=== PATIENT | male | born 1940 | race Caucasian/White ===

== ENCOUNTER 2018-03-04 09:30 | Inpatient (IN) | payer MEDICARE, BC ==
--- NOTE | 2018-03-04 10:13 | EDM.PDOC ---
ED HPI GENERAL MEDICAL PROBLEM - General Chief Complaint: Cardiovascular Problem Stated Complaint: IRREGULAR HEARTBEAT Time Seen by Provider: 03/04/18 10:12 Source of Information: Reports: Patient History Limitations: Reports: No Limitations - History of Present Illness INITIAL COMMENTS - FREE TEXT/NARRATIVE: pt has had sob and he has had rapid heart rates. He had a pneumonia about 2 weeks ago and he is not sure that it cleared. He also went into a rapid rhythm 3 -4 days ago. He has not had chest pain . He had stent placed in his left arm last week., Onset: Other ( 3-4 days ago. ) Duration: Hour(s): Location: Reports: Chest Associated Symptoms: Reports: Malaise, Shortness of Breath, Weakness - Related Data Allergies Allergy/AdvReac Type Severity Reaction Status Date / Time erythromycin base Allergy Intermediate Rash Verified 10/03/17 09:32 [Erythromycin Base] oseltamivir phosphate Allergy Intermediate Wheezing Verified 10/03/17 09:32 [From Tamiflu] procaine HCl [From Novocain] Allergy Intermediate Swelling Verified 10/03/17 09: 32 rifabutin [Rifabutin] Allergy Unknown Rash Verified 10/03/17 09:32 Home Meds: Home Meds Albuterol Sulfate [Ventolin Hfa] 2 puff INH Q6HR PRN 01/27/14 [History] Aspirin [Lite Coat Aspirin] 81 mg PO BEDTIME 01/27/14 [History] Formoterol [Foradil] 1 puff INH BID 01/27/14 [History] Multivitamin [Multivitamins] 1 each PO DAILY 01/27/14 [History] Omeprazole 40 mg PO DAILY 01/27/14 [History] Tamsulosin [Flomax] 0.4 mg PO DAILY 01/27/14 [History] Tiotropium [Spiriva Handihaler] 1 puff INH DAILY 01/27/14 [History] atorvaSTATin [Lipitor] 40 mg PO BEDTIME 01/27/14 [History] guaiFENesin [Mucinex] 600 mg PO TID 01/27/14 [History] Nitroglycerin 0.4 mg SL Q5M PRN #50 tab.subl 01/28/14 [Rx] Gabapentin [Neurontin] 100 mg PO DAILY 09/07/14 [History] valACYclovir [Valtrex] 1,000 mg PO DAILY 09/07/14 [History] Diclofenac Sodium [Voltaren] 75 mg PO BIDMEALS 10/01/17 [History] Fluticasone Propionate [Flonase] 2 spray IH DAILY 10/01/17 [History] Metoprolol Tartrate 50 mg PO BID 10/01/17 [History] Mometasone Furoate [Asmanex 220 MCG] 2 puff IH DAILY 10/01/17 [History] Olodaterol HCl [Striverdi Respimat] 2 puff IH DAILY 10/01/17 [History] amLODIPine [Norvasc] 5 mg PO DAILY 10/01/17 [History] Acetaminophen [Tylenol] 1,000 mg PO Q4H PRN 03/04/18 [History] Clopidogrel [Plavix] 75 mg PO DAILY 03/04/18 [History] Past Medical History HEENT History: Reports: Impaired Vision Cardiovascular History: Reports: Afib, Hypertension Respiratory History: Reports: COPD Gastrointestinal History: Reports: Gastritis, Hiatal Hernia, Other (See Below) 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 Oncologic (Cancer) History: Reports: Prostate - Infectious Disease History Infectious Disease History: Reports: Chicken Pox, Measles, Mumps - Past Surgical History Cardiovascular Surgical History: Reports: Coronary Artery Stent Social & Family History - Tobacco Use Smoking Status *Q: Never Smoker - Caffeine Use Caffeine Use: Reports: Coffee - Recreational Drug Use Recreational Drug Use: No ED ROS GENERAL - Review of Systems Review Of Systems: See Below Constitutional: Reports: No Symptoms, Malaise, Weakness HEENT: Reports: No Symptoms Respiratory: Reports: Shortness of Breath Cardiovascular: Reports: Palpitations, Other (pt has had some episodes of heart rates in the 150 range. ) Endocrine: Reports: No Symptoms GI/Abdominal: Reports: No Symptoms : Reports: No Symptoms Musculoskeletal: Reports: No Symptoms Skin: Reports: No Symptoms ED EXAM, GENERAL - Physical Exam Exam: See Below Free Text/Narrative:: pt arrived with sob and a rapid irregular heart rhythm. He states he has had atrial fib in the past. Exam Limited By: No Limitations General Appearance: Alert, Mild Distress Ears: Normal TMs Nose: Normal Inspection Throat/Mouth: Normal Inspection Head: Atraumatic Neck: Normal Inspection Respiratory/Chest: No Respiratory Distress, Decreased Breath Sounds, Rales Cardiovascular: Irregularly Irregular, Other ( rate is 95) GI/Abdominal: Soft, Non-Tender (Male) Exam: Deferred Rectal (Males) Exam: Deferred Back Exam: Normal Inspection Extremities: Other ( trace perpheral edema) Neurological: Alert, Oriented, Normal Cognition Psychiatric: Normal Affect Course - Vital Signs Last Recorded V/S: Last Vital Signs Temp 34.6 C L 03/04/18 10:10 Pulse 107 H 03/04/18 10:10 Resp 18 03/04/18 10:10 BP 178/101 H 03/04/18 10:10 Pulse Ox 95 03/04/18 10:10 - Orders/Labs/Meds Orders: Active Orders 24 hr Category Date Time Status EKG Documentation Completion [RC] ASDIRECTED Care 03/04/18 10:05 Active UA W/MICROSCOPIC [URIN] Urgent Lab 03/04/18 11:06 Ordered Sodium Chloride 0.9% [Saline Flush] Med 03/04/18 10:12 Active 10 ml FLUSH ASDIRECTED PRN Saline Lock Insert [OM.PC] Routine Oth 03/04/18 10:12 Ordered EKG 12 Lead [EK] Routine Ther 03/04/18 10:04 Ordered Medication Orders Sodium Chloride (Saline Flush) 10 ml FLUSH ASDIRECTED PRN PRN Reason: Keep Vein Open Last Admin: 03/04/18 10:29 Dose: 10 ml Labs: Laboratory Tests 03/04/18 03/04/18 03/04/18 Range/Units 10:20 10:20 10:20 WBC 8.8 (4.5-11.0) K/uL RBC 4.57 (4.30-5.90) M/uL Hgb 14.1 D (12.0-15.0) g/dL Hct 42.7 (40.0-54.0) % MCV 93 (80-98) fL MCH 31 (27-31) pg MCHC 33 (32-36) % Plt Count 324 (150-400) K/uL Neut % (Auto) 69 H (36-66) % Lymph % (Auto) 12 L (24-44) % [place] % (Auto) 11 H (2-6) % Eos % (Auto) 8 H (2-4) % Baso % (Auto) 1 (0-1) % Sodium 140 (140-148) mmol/L Potassium 4.6 (3.6-5.2) mmol/L Chloride 106 (100-108) mmol/L Carbon Dioxide 26 (21-32) mmol/L Anion Gap 8.5 (5.0-14.0) mmol/L BUN 26 H D (7-18) mg/dL Creatinine 1.4 H D (0.8-1.3) mg/dL Est Cr Clr Drug Dosing 41.39 mL/min Estimated GFR (MDRD) 49 L (>60) Glucose 116 H (74-106) mg/dL Calcium 8.4 L (8.5-10.1) mg/dL Total Bilirubin 0.6 (0.2-1.0) mg/dL AST 25 (15-37) U/L ALT 36 (12-78) U/L Alkaline Phosphatase 51 (46-116) U/L Creatine Kinase 66 (39-308) U/L Troponin I < 0.017 (0.000-0.056) ng/mL NT-Pro-B Natriuret Pep (5-450) pg/mL Total Protein 6.7 (6.4-8.2) g/dL Albumin 2.5 L (3.4-5.0) g/dL Globulin 4.2 H (2.3-3.5) g/dL Albumin/Globulin Ratio 0.6 L (1.2-2.2) Urine Color Urine Appearance Urine pH (4.5-8.0) Ur Specific [place] (1.008-1.030) Urine Protein (NEGATIVE) mg/dL Urine Glucose (UA) (NEGATIVE) mg/dL Urine Ketones (NEGATIVE) mg/dL Urine Occult Blood (NEGATIVE) Urine Nitrite (NEGAITVE) Urine Bilirubin (NEGATIVE) Urine Urobilinogen (NORMAL) mg/dL Ur Leukocyte Esterase (NEGATIVE) Urine RBC (0-5) Urine WBC (0-5) Ur Epithelial Cells Amorphous Sediment Urine Bacteria Urine Mucus 03/04/18 03/04/18 Range/Units 10:20 11:06 WBC (4.5-11.0) K/uL RBC (4.30-5.90) M/uL Hgb (12.0-15.0) g/dL Hct (40.0-54.0) % MCV (80-98) fL MCH (27-31) pg MCHC (32-36) % Plt Count (150-400) K/uL Neut % (Auto) (36-66) % Lymph % (Auto) (24-44) % [place] % (Auto) (2-6) % Eos % (Auto) (2-4) % Baso % (Auto) (0-1) % Sodium (140-148) mmol/L Potassium (3.6-5.2) mmol/L Chloride (100-108) mmol/L Carbon Dioxide (21-32) mmol/L Anion Gap (5.0-14.0) mmol/L BUN (7-18) mg/dL Creatinine (0.8-1.3) mg/dL Est Cr Clr Drug Dosing mL/min Estimated GFR (MDRD) (>60) Glucose (74-106) mg/dL Calcium (8.5-10.1) mg/dL Total Bilirubin (0.2-1.0) mg/dL AST (15-37) U/L ALT (12-78) U/L Alkaline Phosphatase (46-116) U/L Creatine Kinase (39-308) U/L Troponin I (0.000-0.056) ng/mL NT-Pro-B Natriuret Pep 1001 H (5-450) pg/mL Total Protein (6.4-8.2) g/dL Albumin (3.4-5.0) g/dL Globulin (2.3-3.5) g/dL Albumin/Globulin Ratio (1.2-2.2) Urine Color Yellow Urine Appearance Slightly cloudy Urine pH 7.0 (4.5-8.0) Ur Specific [place] 1.010 (1.008-1.030) Urine Protein Negative (NEGATIVE) mg/dL Urine Glucose (UA) Normal (NEGATIVE) mg/dL Urine Ketones Negative (NEGATIVE) mg/dL Urine Occult Blood Negative (NEGATIVE) Urine Nitrite Negative (NEGAITVE) Urine Bilirubin Negative (NEGATIVE) Urine Urobilinogen Normal (NORMAL) mg/dL Ur Leukocyte Esterase Negative (NEGATIVE) Urine RBC 0-5 (0-5) Urine WBC Not seen (0-5) Ur Epithelial Cells Not seen Amorphous Sediment Not seen Urine Bacteria Not seen Urine Mucus Few Meds: Medications Generic Name Dose Route Start Last Admin Trade Name Freq PRN Reason Stop Dose Admin Sodium Chloride 10 ml 03/04/18 10:12 03/04/18 10:29 Saline Flush FLUSH 10 ml ASDIRECTED PRN Administration Keep Vein Open Discontinued Medications Generic Name Dose Route Start Last Admin Trade Name Joy PRN Reason Stop Dose Admin Furosemide 60 mg 03/04/18 11:55 Lasix IVPUSH 03/04/18 11:56 ONETIME ONE - Re-Assessments/Exams Free Text/Narrative Re-Assessment/Exam: 03/04/18 12:02 chest xray shows a infiltrate verus chf, pt is in atrial fib-flutter, his trop is normal. His bnp is 1000. Departure - Departure Time of Disposition: 11:54 Disposition: Admitted As Inpatient 64 Condition: Fair Clinical Impression: Atrial fibrillation/flutter, CHF (congestive heart failure) Referrals: Kra Burkett MD [Primary Care Provider] - Forms: ED Department Discharge Care Plan Goals: admit to Dr Marie - My Orders Last 24 Hours: My Active Orders 03/04/18 10:04 EKG 12 Lead [EK] Routine 03/04/18 10:05 EKG Documentation Completion [RC] ASDIRECTED 03/04/18 10:12 Sodium Chloride 0.9% [Saline Flush] 10 ml FLUSH ASDIRECTED PRN Saline Lock Insert [OM.PC] Routine 03/04/18 11:06 UA W/MICROSCOPIC [URIN] Urgent - Assessment/Plan Last 24 Hours: My Active Orders 03/04/18 10:04 EKG 12 Lead [EK] Routine 03/04/18 10:05 EKG Documentation Completion [RC] ASDIRECTED 03/04/18 10:12 Sodium Chloride 0.9% [Saline Flush] 10 ml FLUSH ASDIRECTED PRN Saline Lock Insert [OM.PC] Routine 03/04/18 11:06 UA W/MICROSCOPIC [URIN] Urgent
[2018-03-04] MEDS: Sodium Chloride 0.9% 10 ML Syringe FLUSH PRN ×2 (10:29→12:55)
--- NOTE | 2018-03-04 11:52 | CR ---
CHEST: 2 view CLINICAL HISTORY:Shortness of breath COMPARISON:Portable chest the 2014 FINDINGS: There is moderate to the pleural parenchymal scarring in the left hemithorax with apical t hickening. There are scattered areas of scarring in the right the upper lobe. The lung markings of in creased since 2014. This may represent progressive disease or possibly superimposed the interstitial edema or infiltrate. On the lateral image there is some pleural-based density posteriorly which may b e chronic. Patient has had previous sternotomy. IMPRESSION: Severe changes of COPD with the moderate the superimposed pleural parenchymal scarring l eft greater than right. This has progressed since the 2014. There has been left apical surgery. Superimposed acute process such is some CHF or pneumonitis cannot be excluded Irregular pleural-based density seen on the lateral film posteriorly may be a part of this pleural pa renchymal scarring. If clinically relevant the noncontrast CT chest should be considered
[2018-03-04] MEDS ORDERED: Furosemide 40 MG/4 ML VIAL IVPUSH ONE (11:55)
--- NOTE | 2018-03-04 14:04 | PCM.HP ---
H&P History of Present Illness - General Date of Service: 03/04/18 Admit Problem/Dx: Admission Diagnosis/Problem Admission Diagnosis/Problem Atrial fibrillation Source of Information: Patient, Family, Old Records, Provider, RN Notes Reviewed History Limitations: Reports: No Limitations - History of Present Illness Initial Comments - Free Text/Narative: Mr. Garces is a 77-year-old gentleman who is admitted through the emergency department with weakness and dyspnea secondary to atrial fibrillation with rapid ventricular response. He has a known previous history of atrial fibrillation, having occurred on 2 previous occasions. He also has known underlying chronic lung disease as well as coronary artery disease. In the recent past he has been hospitalized for pneumonia and one week ago underwent coronary angioplasty with stent placement. He felt well until approximately 3 days ago when he began to note weakness with exertion associated with dyspnea. He presented to the emergency department today for further evaluation. Cardiac monitoring shows evidence of atrial fibrillation with rapid ventricular response. There was some question of possible congestive failure, lungs are clear on examination and chest x-ray is equivocal concerning the issue of pulmonary edema. - Related Data Allergies/Adverse Reactions: Allergies Allergy/AdvReac Type Severity Reaction Status Date / Time erythromycin base Allergy Intermediate Rash Verified 10/03/17 09:32 [Erythromycin Base] oseltamivir phosphate Allergy Intermediate Wheezing Verified 10/03/17 09:32 [From Tamiflu] procaine HCl [From Novocain] Allergy Intermediate Swelling Verified 10/03/17 09: 32 rifabutin [Rifabutin] Allergy Unknown Rash Verified 10/03/17 09:32 Home Medications: Home Meds Albuterol Sulfate [Ventolin Hfa] 2 puff INH Q6HR PRN 01/27/14 [History] Aspirin [Lite Coat Aspirin] 81 mg PO BEDTIME 01/27/14 [History] Formoterol [Foradil] 1 puff INH BID 01/27/14 [History] Multivitamin [Multivitamins] 1 each PO DAILY 01/27/14 [History] Omeprazole 40 mg PO DAILY 01/27/14 [History] Tamsulosin [Flomax] 0.4 mg PO DAILY 01/27/14 [History] Tiotropium [Spiriva Handihaler] 1 puff INH DAILY 01/27/14 [History] atorvaSTATin [Lipitor] 40 mg PO BEDTIME 01/27/14 [History] guaiFENesin [Mucinex] 600 mg PO TID 01/27/14 [History] Nitroglycerin 0.4 mg SL Q5M PRN #50 tab.subl 01/28/14 [Rx] Gabapentin [Neurontin] 100 mg PO DAILY 09/07/14 [History] valACYclovir [Valtrex] 1,000 mg PO DAILY 09/07/14 [History] Diclofenac Sodium [Voltaren] 75 mg PO BIDMEALS 10/01/17 [History] Fluticasone Propionate [Flonase] 2 spray IH DAILY 10/01/17 [History] Metoprolol Tartrate 50 mg PO BID 10/01/17 [History] Mometasone Furoate [Asmanex 220 MCG] 2 puff IH DAILY 10/01/17 [History] Olodaterol HCl [Striverdi Respimat] 2 puff IH DAILY 10/01/17 [History] amLODIPine [Norvasc] 5 mg PO DAILY 10/01/17 [History] Acetaminophen [Tylenol] 1,000 mg PO Q4H PRN 03/04/18 [History] Clopidogrel [Plavix] 75 mg PO DAILY 03/04/18 [History] Past Medical History HEENT History: Reports: Impaired Vision Cardiovascular History: Reports: Afib, Hypertension Respiratory History: Reports: COPD Gastrointestinal History: Reports: Gastritis, Hiatal Hernia, Other (See Below) 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 Denies: Fever, Chills HEENT: Reports: No Symptoms Pulmonary: Reports: Shortness of Breath, Cough. Denies: Wheezing, Pleuritic Chest Pain, Sputum, Hemoptysis Cardiovascular: Reports: Palpitations, Dyspnea on Exertion. Denies: Chest Pain , Orthopnea, PND, Edema, Lightheadedness Gastrointestinal: Reports: No Symptoms Genitourinary: Reports: No Symptoms Musculoskeletal: Reports: No Symptoms Skin: Reports: No Symptoms Psychiatric: Reports: No Symptoms Neurological: Reports: No Symptoms Hematologic/Lymphatic: Reports: No Symptoms Immunologic: Reports: No Symptoms Exam - Exam Exam: See Below - Vital Signs Vital Signs: Last Vital Signs Temp 94.3 F L 03/04/18 10:10 Pulse 88 03/04/18 13:48 Resp 16 03/04/18 13:48 BP 138/97 H 03/04/18 13:48 Pulse Ox 91 L 03/04/18 13:48 Weight: 160 lb 14.999 oz - Exam Quality Assessment: DVT Prophylaxis General: Alert, Oriented, Cooperative HEENT: Conjunctiva Clear, Hearing Intact, Mucosa Moist & [place], Normal Nasal Septum, Posterior Pharynx Clear, Pupils Equal Neck: Supple, Trachea Midline, +2 Carotid Pulse wo Bruit Lungs: Clear to Auscultation, Normal Respiratory Effort Cardiovascular: Normal S1, Normal S2, Irregular Rhythm, Tachycardia. No: Systolic Murmur, Diastolic Murmur GI/Abdominal Exam: Soft, Non-Tender, No Organomegaly, No Distention Back Exam: Normal Inspection, Full Range of Motion Extremities: Non-Tender, No Pedal Edema Skin: Warm, Dry Neurological: Cranial Nerves Intact, Strength Equal Bilateral, Normal Speech, Normal Tone. No: Focal Deficit Neuro Extensive - Mental Status: Alert, Oriented x3, Normal Mood/Affect, Normal Cognition, Memory Intact - Patient Data Lab Results Last 24 hrs: Laboratory Results - last 24 hr 03/04/18 03/04/18 03/04/18 Range/Units 10:20 10:20 10:20 WBC 8.8 (4.5-11.0) K/uL RBC 4.57 (4.30-5.90) M/uL Hgb 14.1 D (12.0-15.0) g/dL Hct 42.7 (40.0-54.0) % MCV 93 (80-98) fL MCH 31 (27-31) pg MCHC 33 (32-36) % Plt Count 324 (150-400) K/uL Neut % (Auto) 69 H (36-66) % Lymph % (Auto) 12 L (24-44) % [place] % (Auto) 11 H (2-6) % Eos % (Auto) 8 H (2-4) % Baso % (Auto) 1 (0-1) % Sodium 140 (140-148) mmol/L Potassium 4.6 (3.6-5.2) mmol/L Chloride 106 (100-108) mmol/L Carbon Dioxide 26 (21-32) mmol/L Anion Gap 8.5 (5.0-14.0) mmol/L BUN 26 H D (7-18) mg/dL Creatinine 1.4 H D (0.8-1.3) mg/dL Est Cr Clr Drug Dosing 41.39 mL/min Estimated GFR (MDRD) 49 L (>60) Glucose 116 H (74-106) mg/dL Calcium 8.4 L (8.5-10.1) mg/dL Total Bilirubin 0.6 (0.2-1.0) mg/dL AST 25 (15-37) U/L ALT 36 (12-78) U/L Alkaline Phosphatase 51 (46-116) U/L Creatine Kinase 66 (39-308) U/L Troponin I < 0.017 (0.000-0.056) ng/mL NT-Pro-B Natriuret Pep (5-450) pg/mL Total Protein 6.7 (6.4-8.2) g/dL Albumin 2.5 L (3.4-5.0) g/dL Globulin 4.2 H (2.3-3.5) g/dL Albumin/Globulin Ratio 0.6 L (1.2-2.2) Urine Color Urine Appearance Urine pH (4.5-8.0) Ur Specific [place] (1.008-1.030) Urine Protein (NEGATIVE) mg/dL Urine Glucose (UA) (NEGATIVE) mg/dL Urine Ketones (NEGATIVE) mg/dL Urine Occult Blood (NEGATIVE) Urine Nitrite (NEGAITVE) Urine Bilirubin (NEGATIVE) Urine Urobilinogen (NORMAL) mg/dL Ur Leukocyte Esterase (NEGATIVE) Urine RBC (0-5) Urine WBC (0-5) Ur Epithelial Cells Amorphous Sediment Urine Bacteria Urine Mucus 03/04/18 03/04/18 Range/Units 10:20 11:06 WBC (4.5-11.0) K/uL RBC (4.30-5.90) M/uL Hgb (12.0-15.0) g/dL Hct (40.0-54.0) % MCV (80-98) fL MCH (27-31) pg MCHC (32-36) % Plt Count (150-400) K/uL Neut % (Auto) (36-66) % Lymph % (Auto) (24-44) % [place] % (Auto) (2-6) % Eos % (Auto) (2-4) % Baso % (Auto) (0-1) % Sodium (140-148) mmol/L Potassium (3.6-5.2) mmol/L Chloride (100-108) mmol/L Carbon Dioxide (21-32) mmol/L Anion Gap (5.0-14.0) mmol/L BUN (7-18) mg/dL Creatinine (0.8-1.3) mg/dL Est Cr Clr Drug Dosing mL/min Estimated GFR (MDRD) (>60) Glucose (74-106) mg/dL Calcium (8.5-10.1) mg/dL Total Bilirubin (0.2-1.0) mg/dL AST (15-37) U/L ALT (12-78) U/L Alkaline Phosphatase (46-116) U/L Creatine Kinase (39-308) U/L Troponin I (0.000-0.056) ng/mL NT-Pro-B Natriuret Pep 1001 H (5-450) pg/mL Total Protein (6.4-8.2) g/dL Albumin (3.4-5.0) g/dL Globulin (2.3-3.5) g/dL Albumin/Globulin Ratio (1.2-2.2) Urine Color Yellow Urine Appearance Slightly cloudy Urine pH 7.0 (4.5-8.0) Ur Specific [place] 1.010 (1.008-1.030) Urine Protein Negative (NEGATIVE) mg/dL Urine Glucose (UA) Normal (NEGATIVE) mg/dL Urine Ketones Negative (NEGATIVE) mg/dL Urine Occult Blood Negative (NEGATIVE) Urine Nitrite Negative (NEGAITVE) Urine Bilirubin Negative (NEGATIVE) Urine Urobilinogen Normal (NORMAL) mg/dL Ur Leukocyte Esterase Negative (NEGATIVE) Urine RBC 0-5 (0-5) Urine WBC Not seen (0-5) Ur Epithelial Cells Not seen Amorphous Sediment Not seen Urine Bacteria Not seen Urine Mucus Few Result Diagrams: 03/04/18 10:20 03/04/18 10:20 *Q Meaningful Use (ADM) - VTE Risk Assess *Q Each Risk Factor Represents 1 Point: Abnormal Pulmonary Function (COPD) Total Score 1 Point Risk Factors: 1 Each Risk Factor Represents 2 Points: None Total Score 2 Point Risk Factors: 0 Each Risk Factor Represents 3 Points: Age 75 Years or Greater Total Score 3 Point Risk Factors: 3 Each Risk Factor Represents 5 Points: None Total Score 5 Point Risk Factors: 0 Venous Thromboembolism Risk Factor Score *Q: 4 Problem List Initiated/Reviewed/Updated: Yes Orders Last 24hrs: Active Orders 24 hr Category Date Time Status Patient Status Manage Transfer [TRANSFER] Routine ADT 03/04/18 13:48 Active EKG Documentation Completion [RC] ASDIRECTED Care 03/04/18 10:05 Active UA W/MICROSCOPIC [URIN] Urgent Lab 03/04/18 11:06 Ordered Sodium Chloride 0.9% [Saline Flush] Med 03/04/18 10:12 Active 10 ml FLUSH ASDIRECTED PRN Saline Lock Insert [OM.PC] Routine Oth 03/04/18 10:12 Ordered Resuscitation Status Routine Resus Stat 03/04/18 13:53 Ordered EKG 12 Lead [EK] Routine Ther 03/04/18 10:04 Ordered Medication Orders Sodium Chloride (Saline Flush) 10 ml FLUSH ASDIRECTED PRN PRN Reason: Keep Vein Open Last Admin: 03/04/18 12:55 Dose: 10 ml Admin: 03/04/18 10:29 Dose: 10 ml Assessment/Plan Comment:: ASSESSMENT AND PLAN ATRIAL FIBRILLATION WITH RAPID VENTRICULAR RESPONSE-onset likely in the last 3 days, with associated symptoms of weakness and shortness of breath. Previous episodes of atrial fibrillation on at least 2 previous occurrences. Not a candidate for electrical cardioversion because of unknown duration of time. -Cardiac monitoring -Continue current dose of metoprolol -Diltiazem 30 mg by mouth every 6 hours -Consider initiation of oral anticoagulation CORONARY ARTERY DISEASE-status post angioplasty with stent placement one week ago -Continue current medical therapy CONGESTIVE HEART FAILURE-seems to be relatively stable, more likely current symptoms are related to the atrial fibrillation -Continue outpatient medical regimen COPD-no evidence of acute exacerbation CHRONIC KIDNEY DISEASE STAGE III -Closely monitor urine output and renal function MAINTENANCE ISSUES -DVT prophylaxis; Lovenox 40 mg subcutaneous daily -GI prophylaxis; continue outpatient PPI therapy -[place] catheter; not indicated -Nutrition; 2 g sodium diet -Nicotine dependence; not required CODE STATUS-FULL CODE ADMISSION STATUS-patient will be admitted to inpatient status, expect at least a 2 night hospital stay for evaluation and management of problems as outlined above. At the time of this admission I do not reasonably expected evaluation and management of this problem will require more than a 96 hour hospital stay. DISPOSITION-anticipate discharge to home after the hospital stay. PRIMARY CARE PROVIDER-Dr. Burkett
[2018-03-04] MEDS ORDERED: Polyethylene Glycol 3350 Powder 17 GM Packet PO PRN (14:30)
[2018-03-04] MEDS ORDERED: Albuterol 0.083% 2.5 MG/3 ML Neb Soln NEB PRN (14:30)
[2018-03-04] MEDS ORDERED: Albuterol 8 GM Inhaler INH PRN (14:30)
[2018-03-04] MEDS ORDERED: Ondansetron 4 MG/2 ML SDV IV PRN (14:30)
[2018-03-04] MEDS ORDERED: Acetaminophen 325 MG Tab PO PRN (14:30)
[2018-03-04] MEDS ORDERED: Magnesium Hydroxide 400 MG/5 ML Susp 30 ML Cup PO PRN (14:30)
[2018-03-04] MEDS ORDERED: oxyCODONE 5 MG Tab PO PRN (14:30)
[2018-03-04] MEDS ORDERED: Sodium Chloride 0.9% 10 ML Syringe FLUSH PRN (14:30)
[2018-03-04] MEDS ORDERED: Enoxaparin 40 MG/0.4 ML Syringe SUBCUT SCH (15:00)
[2018-03-04] MEDS: Diltiazem IR 30 MG Tab PO SCH ×2 (15:58→21:16)
[2018-03-04] MEDS: Diclofenac Sodium 75 MG Tab.EC PO SCH (17:05)
[2018-03-04] MEDS ORDERED: Formoterol 12 MCG Inhalant Cap Kit of 12 INH SCH (21:00)
[2018-03-04] MEDS ORDERED: atorvaSTATin 20 MG Tab PO SCH (21:00)
[2018-03-04] MEDS ORDERED: Aspirin 81 MG Tab.EC PO SCH (21:00)
[2018-03-04] MEDS: Metoprolol Tartrate 50 MG Tab PO SCH (21:15)
[2018-03-05] MEDS: Diltiazem IR 30 MG Tab PO SCH ×2 (02:57→08:53)
[2018-03-05] MEDS ORDERED: STIOLTO RESPIMAT INH SCH (07:00)
[2018-03-05] MEDS ORDERED: Tiotropium Inhaler 18 MCG Inhalation Powder Cap Kit of 5 INH SCH (07:00)
[2018-03-05] MEDS: Diclofenac Sodium 75 MG Tab.EC PO SCH (07:19)
[2018-03-05] MEDS: Metoprolol Tartrate 50 MG Tab PO SCH ×2 (07:25→08:56)
[2018-03-05] MEDS ORDERED: Pantoprazole 40 MG Tab.CR PO SCH (07:30)
[2018-03-05] MEDS: valACYclovir 1,000 MG Tab PO SCH ×2 (08:56→09:04)
[2018-03-05] MEDS ORDERED: Clopidogrel 75 MG Tab PO SCH (09:00)
[2018-03-05] MEDS ORDERED: OLODATEROL HCL IH SCH (09:00)
[2018-03-05] MEDS ORDERED: Mometasone Furoate Powder 220 MCG/Puff 14 Dose Inhaler INH SCH ×2 (09:00→21:00)
[2018-03-05] MEDS ORDERED: Tamsulosin 0.4 MG Cap.ER PO SCH (09:00)
[2018-03-05] MEDS ORDERED: Fluticasone Propionate Nasal Spray 16 GM Bottle NASBOTH SCH ×2 (09:00→21:00)
[2018-03-05] MEDS ORDERED: Gabapentin 100 MG Cap PO SCH (09:00)
--- NOTE | 2018-03-05 13:18 | PCM.DCSUM1 ---
Discharge Summary - Hospital Course Brief History: Mr. Garces is a 77-year-old gentleman who was admitted through the emergency department for further evaluation and management of atrial fibrillation with rapid ventricular response. - Discharge Data Discharge Date: 03/05/18 Discharge Disposition: Home, Self-Care 01 Condition: Fair - Discharge Diagnosis/Problem(s) (1) CHF (congestive heart failure) SNOMED Code(s): 98086547 ICD Code: I50.9 - HEART FAILURE, UNSPECIFIED Status: Acute Current Visit : Yes (2) Paroxysmal atrial fibrillation with rapid ventricular response SNOMED Code(s): 352936620, 252710591892017 ICD Code: I48.0 - PAROXYSMAL ATRIAL FIBRILLATION Status: Acute Current Visit: Yes (3) Coronary arteriosclerosis, CAD SNOMED Code(s): 23353903 ICD Code: I25.10 - ATHSCL HEART DISEASE OF [place] CORONARY ARTERY W/O ANG PCTRS Status: Chronic Current Visit: No (4) COPD (chronic obstructive pulmonary disease) SNOMED Code(s): 02608118 ICD Code: J44.9 - CHRONIC OBSTRUCTIVE PULMONARY DISEASE, UNSPECIFIED Status : Chronic Current Visit: No - Patient Summary/Data Consults: Consultations 03/04/18 14:30 PT Evaluation and Treatment [CONS] Routine Please Evaluate and Treat. PT Reason for Consult: Weakness This query below is only for informational purposes and is not editable. Hospital Course: Mr. Garces is a 77-year-old gentleman who was admitted through the emergency department with weakness and dyspnea secondary to atrial fibrillation with rapid ventricular response. He has a known previous history of atrial fibrillation, having occurred on 2 previous occasions. He also has known underlying chronic lung disease as well as coronary artery disease. In the recent past he has been hospitalized for pneumonia and one week ago underwent coronary angioplasty with stent placement. He felt well until approximately 3 days ago when he began to note weakness with exertion associated with dyspnea. He presented to the emergency department today for further evaluation. Cardiac monitoring shows evidence of atrial fibrillation with rapid ventricular response. There was some question of possible congestive failure, lungs are clear on examination and chest x-ray is equivocal concerning the issue of pulmonary edema. On admission he was started on short acting diltiazem 30 mg every 6 hours for rate control. He was placed on county auditor, initially heart rate was elevated but then did decrease with use of the diltiazem. He spontaneously converted later in the evening to sinus rhythm and remained in sinus rhythm throughout the duration of his hospital stay. Amlodipine was discontinued because of initiation of therapy with diltiazem and will be discontinue at the time of discharge. Given very limited episodes up to this point of atrial fibrillation he was not started on oral anticoagulation. He will be discharged home on long acting diltiazem 120 mg daily in addition to his other medications. Activity will be as tolerated and he will resume his usual diet. Follow-up appointment will be scheduled with Dr. Burkett within one week. - Patient Instructions Diet: Heart Healthy Diet Activity: As Tolerated Other/Special Instructions: Please schedule follow-up appointment with Dr. Burkett within one week. - Discharge Plan Prescriptions/Med Rec: Diltiazem HCl [Diltiazem 24Hr Cd] 120 mg PO DAILY #30 cap.er.24h Home Medications: Home Meds Albuterol Sulfate [Ventolin Hfa] 2 puff INH Q6HR PRN 01/27/14 [History] Aspirin [Lite Coat Aspirin] 81 mg PO BEDTIME 01/27/14 [History] Multivitamin [Multivitamins] 1 each PO DAILY 01/27/14 [History] Omeprazole 40 mg PO DAILY 01/27/14 [History] Tamsulosin [Flomax] 0.4 mg PO BEDTIME 01/27/14 [History] atorvaSTATin [Lipitor] 40 mg PO BEDTIME 01/27/14 [History] Nitroglycerin 0.4 mg SL Q5M PRN #50 tab.subl 01/28/14 [Rx] Gabapentin [Neurontin] 100 mg PO DAILY 09/07/14 [History] Diclofenac Sodium [Voltaren] 75 mg PO ACDINNER 10/01/17 [History] Fluticasone Propionate [Flonase] 2 spray IH QPM 10/01/17 [History] Metoprolol Tartrate 50 mg PO BID 10/01/17 [History] Mometasone Furoate [Asmanex 220 MCG] 1 puff IH QAM 10/01/17 [History] Acetaminophen [Tylenol] 1,000 mg PO Q4H PRN 03/04/18 [History] Clopidogrel [Plavix] 75 mg PO DAILY 03/04/18 [History] Diltiazem HCl [Diltiazem 24Hr Cd] 120 mg PO DAILY #30 cap.er.24h 03/05/18 [Rx] Referrals: Kar Burkett MD [Primary Care Provider] - - Discharge Summary/Plan Comment DC Time >30 min.: No - Patient Data Vitals - Most Recent: Last Vital Signs Temp 95.5 F 03/05/18 11:08 Pulse 73 03/05/18 11:08 Resp 16 03/05/18 11:08 BP 147/81 H 03/05/18 11:08 Pulse Ox 90 L 03/05/18 11:08 Weight - Most Recent: 152 lb 12.803 oz I&O - Last 24 hours: Intake & Output 03/04/18 03/05/18 03/05/18 22:59 06:59 14:59 Intake Total 577 860 Output Total 1200 350 Balance -623 510 Lab Results - Last 24 hrs: Laboratory Results - last 24 hr 03/05/18 03/05/18 03/05/18 Range/Units 04:33 04:33 04:33 WBC 7.9 (4.5-11.0) K/uL RBC 4.63 (4.30-5.90) M/uL Hgb 14.4 (12.0-15.0) g/dL Hct 24.7 L (40.0-54.0) % MCV 92 (80-98) fL MCH 31 (27-31) pg MCHC 34 (32-36) % Plt Count 270 (150-400) K/uL Neut % (Auto) 67 H (36-66) % Lymph % (Auto) 16 L (24-44) % [place] % (Auto) 9 H (2-6) % Eos % (Auto) 7 H (2-4) % Baso % (Auto) 1 (0-1) % Sodium 137 L (140-148) mmol/L Potassium 4.3 (3.6-5.2) mmol/L Chloride 102 (100-108) mmol/L Carbon Dioxide 23 (21-32) mmol/L Anion Gap 16.3 H (5.0-14.0) mmol/L BUN 28 H (7-18) mg/dL Creatinine 1.3 (0.8-1.3) mg/dL Est Cr Clr Drug Dosing 44.58 mL/min Estimated GFR (MDRD) 53 L (>60) Glucose 108 H (74-106) mg/dL Calcium 8.6 (8.5-10.1) mg/dL TSH, Ultra Sensitive 2.604 (0.358-3.740) uIU/mL Med Orders - Current: Current Medications Acetaminophen (Tylenol) 650 mg PO Q4H PRN PRN Reason: Pain (Mild 1-3)/fever Albuterol (Ventolin Hfa) 0 gm INH Q6H PRN PRN Reason: Shortness of Breath Albuterol (Proventil Neb Soln) 2.5 mg NEB Q4H PRN PRN Reason: Shortness Of Breath/wheezing Aspirin (Halfprin) 81 mg PO BEDTIME [facility] Last Admin: 03/04/18 21:16 Dose: 81 mg Atorvastatin Calcium (Lipitor) 40 mg PO BEDTIME [facility] Last Admin: 03/04/18 21:17 Dose: 40 mg Clopidogrel Bisulfate (Plavix) 75 mg PO DAILY [facility] Last Admin: 03/05/18 08:53 Dose: 75 mg Diclofenac Sodium (Voltaren) 75 mg PO BIDMEALS [facility] Last Admin: 03/05/18 07:19 Dose: 75 mg Diltiazem HCl (Cardizem) 30 mg PO Q6H [facility] Last Admin: 03/05/18 08:53 Dose: 30 mg Enoxaparin Sodium (Lovenox) 40 mg SUBCUT Q24H [facility] Last Admin: 03/04/18 15:58 Dose: 40 mg Fluticasone Propionate (Flonase) 0 gm NASBOTH BEDTIME [facility] Gabapentin (Neurontin) 100 mg PO DAILY [facility] Last Admin: 03/05/18 08:53 Dose: 100 mg Magnesium Hydroxide (Milk Of Magnesia) 30 ml PO Q12H PRN PRN Reason: Constipation Metoprolol Tartrate (Lopressor) 50 mg PO BID [facility] Last Admin: 03/05/18 08:56 Dose: Not Given Mometasone Furoate (Asmanex 220 Mcg) 1 puff INH DAILY@0700 [facility] Last Admin: 03/05/18 09:05 Dose: 1 puff Ondansetron HCl (Zofran) 4 mg IV Q4H PRN PRN Reason: Nausea/Vomiting Oxycodone HCl (Oxycodone) 5 mg PO Q4H PRN PRN Reason: Pain (moderate 4-6) Pantoprazole Sodium (Protonix) 40 mg PO ACBREAKFAST [facility] Last Admin: 03/05/18 07:19 Dose: 40 mg Stiolto Respimat ( (Ptom)) 0 each INH DAILY@0700 [facility] Last Admin: 03/05/18 08:51 Dose: 2 each Polyethylene Glycol (Miralax) 17 gm PO DAILY PRN PRN Reason: Constipation Senna/Docusate Sodium (Senna Plus) 1 tab PO BID PRN PRN Reason: Constipation Sodium Chloride (Saline Flush) 10 ml FLUSH ASDIRECTED PRN PRN Reason: Keep Vein Open Tamsulosin HCl (Flomax) 0.4 mg PO DAILY [facility] Last Admin: 03/05/18 08:53 Dose: 0.4 mg Valacyclovir HCl (Valtrex) 1,000 mg PO DAILY [facility] Last Admin: 03/05/18 09:04 Dose: Not Given Discontinued Medications Fluticasone Propionate (Flonase) 0 gm NASBOTH DAILY [facility] Furosemide (Lasix) 60 mg IVPUSH ONETIME ONE Stop: 03/04/18 11:56 Last Admin: 03/04/18 12:54 Dose: 60 mg Mometasone Furoate (Asmanex 220 Mcg) 1 puff INH BEDTIME [facility] Sodium Chloride (Saline Flush) 10 ml FLUSH ASDIRECTED PRN PRN Reason: Keep Vein Open Last Admin: 03/04/18 12:55 Dose: 10 ml - Exam General: Reports: Alert, Oriented, Cooperative, No Acute Distress Cardiovascular: Reports: Regular Rate, Regular Rhythm, No Murmurs GI/Abdominal Exam: Soft, Non-Tender, No Organomegaly, No Distention Extremities: Non-Tender, No Pedal Edema Skin: Reports: Warm, Dry
== END 2018-03-05 14:55 | disposition home or self-care (01) | DRG 309 ==
LOC: JP.ED 09:30 → JP.MS 13:48
PROVIDERS: ADMIT Hospitalist; ATTEND Hospitalist
DX: I48.0 Paroxysmal atrial fibrillation (principal); I13.0 Hypertensive heart and chronic kidney disease with heart failure and stage 1 through stage 4 chronic kidney disease, or unspecified chronic kidney disease; I50.9 Heart failure, unspecified; N18.3 Chronic kidney disease, stage 3 (moderate); J44.9 Chronic obstructive pulmonary disease, unspecified; I25.10 Atherosclerotic heart disease of native coronary artery without angina pectoris; I49.9 Cardiac arrhythmia, unspecified; R06.02 Shortness of breath; Z85.46 Personal history of malignant neoplasm of prostate; Z95.5 Presence of coronary angioplasty implant and graft; H54.7 Unspecified visual loss; Z79.82 Long term (current) use of aspirin; Z88.1 Allergy status to other antibiotic agents; Z88.8 Allergy status to other drugs, medicaments and biological substances
CPT/HCPCS: 36415; 71046 ×2; 80053; 81001; 82550; 83880; 84484; 85025; 93005; J1940; J7050 ×2; 80048; 84443; 96374; 99285-25; A9270-GY; J1650

== ENCOUNTER 2018-03-23 18:27 | Emergency (ER) | payer MEDICARE, BC ==
--- NOTE | 2018-03-23 19:23 | EDM.PDOC ---
<Kira Phillips N - Last Filed: 03/23/18 19:33> ED HPI GENERAL MEDICAL PROBLEM - General Chief Complaint: Cardiovascular Problem Stated Complaint: [facility] Time Seen by Provider: 03/23/18 18:37 Source of Information: Reports: Patient History Limitations: Reports: No Limitations - History of Present Illness INITIAL COMMENTS - FREE TEXT/NARRATIVE: Idris is a 77-year-old male that presents to the ER with concerns regarding his blood pressure. He monitors his BP at home and reported a value of 203/127 tonight prior to his evening meal, prompting his visit here. He was started on diltiazem following a recent hospitalization for atrial fibrillation, but felt weak and poor appetite with this medication, and discontinued its use several days ago. He has been taking hydrochlorothiazide since that time, but has noted progressive increases in his blood pressure since discontinuing the medication. He has been on 2 L oxygen at home for the past three days per recommendation of his litigation assistant. Reports ongoing dyspnea, productive cough, occasional heart palpitations, and PND. - Related Data Allergies Allergy/AdvReac Type Severity Reaction Status Date / Time erythromycin base Allergy Intermediate Rash Verified 03/23/18 18:39 [Erythromycin Base] oseltamivir phosphate Allergy Intermediate Wheezing Verified 03/23/18 18:39 [From Tamiflu] procaine HCl [From Novocain] Allergy Intermediate Swelling Verified 03/23/18 18: 39 rifabutin [Rifabutin] Allergy Unknown Rash Verified 03/23/18 18:39 Home Meds: Home Meds Albuterol Sulfate [Ventolin Hfa] 2 puff INH Q6HR PRN 01/27/14 [History] Aspirin [Lite Coat Aspirin] 81 mg PO BEDTIME 01/27/14 [History] Multivitamin [Multivitamins] 1 each PO DAILY 01/27/14 [History] Omeprazole 40 mg PO DAILY 01/27/14 [History] Tamsulosin [Flomax] 0.4 mg PO BEDTIME 01/27/14 [History] atorvaSTATin [Lipitor] 40 mg PO BEDTIME 01/27/14 [History] Nitroglycerin 0.4 mg SL Q5M PRN #50 tab.subl 01/28/14 [Rx] Diclofenac Sodium [Voltaren] 75 mg PO ACDINNER 10/01/17 [History] Fluticasone Propionate [Flonase] 2 spray IH QPM 10/01/17 [History] Metoprolol Tartrate 50 mg PO BID 10/01/17 [History] Mometasone Furoate [Asmanex 220 MCG] 1 puff IH QAM 10/01/17 [History] Acetaminophen [Tylenol] 1,000 mg PO Q4H PRN 03/04/18 [History] Clopidogrel [Plavix] 75 mg PO DAILY 03/04/18 [History] Hydrochlorothiazide 25 mg PO DAILY 03/23/18 [History] Past Medical History HEENT History: Reports: Hard of Hearing, Impaired Vision Cardiovascular History: Reports: Afib, Hypertension Respiratory History: Reports: COPD Gastrointestinal History: Reports: Gastritis, Hiatal Hernia, Other (See Below) 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 Denies: Fever, Chills, Malaise, Decreased Appetite Respiratory: Reports: Shortness of Breath, Cough, Sputum. Denies: Pleuritic Chest Pain Cardiovascular: Reports: Blood Pressure Problem, Edema, Palpitations, PND. Denies: Chest Pain, Orthopnea Endocrine: Reports: Fatigue GI/Abdominal: Denies: Abdominal Pain, Anorexia, Constipation, Diarrhea, Nausea, Vomiting : Denies: Dysuria, Frequency, Hematuria, Pain, Urgency Musculoskeletal: Reports: No Symptoms Skin: Reports: No Symptoms Neurological: Denies: Headache ED EXAM, GENERAL - Physical Exam Exam Limited By: No Limitations General Appearance: Alert, No Apparent Distress Eye Exam: Bilateral Eye: PERRL Throat/Mouth: Normal Inspection Respiratory/Chest: Crackles (Fine crackles in bases bilaterally). No: Respiratory Distress, Wheezing, Stridor, Pleural Rub, Retractions Cardiovascular: No Edema, No Gallop, No Murmur, No Rub, JVD, Other (Regularly irregular) GI/Abdominal: Soft, Non-Tender Neurological: Alert, Oriented, Normal Cognition, No Motor/Sensory Deficits Course - Vital Signs Last Recorded V/S: Last Vital Signs Temp 97.5 F 03/23/18 19:54 Pulse 89 03/23/18 22:00 Resp 15 03/23/18 22:00 BP 175/103 H 03/23/18 22:11 Pulse Ox 92 L 03/23/18 22:00 - Orders/Labs/Meds Orders: Active Orders 24 hr Category Date Time Status EKG Documentation Completion [RC] ASDIRECTED Care 03/23/18 19:28 Inactive EKG Documentation Completion [RC] STAT Care 03/23/18 19:27 Active Peripheral IV Care [RC] . DIRECTED Care 03/23/18 19:32 Active Chest 2V [CR] Stat Exams 03/23/18 19:23 Taken Chest w Cont [CT] Stat Exams 03/23/18 21:10 Taken URINALYSIS W/O MICROSCOPIC [UA W/O MICROSCOPIC] [URIN] Lab 03/23/18 19:48 Ordered Stat Iopamidol [Isovue-300 (61%)] Med 03/23/18 21:30 Active 100 ml IV . DIRECTED Sodium Chloride 0.9% [Normal Saline] 1,000 ml Med 03/23/18 21:15 Active IV ASDIRECTED Sodium Chloride 0.9% [Normal Saline] 100 ml Med 03/23/18 21:30 Active IV ASDIRECTED Sodium Chloride 0.9% [Saline Flush] Med 03/23/18 19:32 Active 10 ml FLUSH ASDIRECTED PRN Peripheral IV Insertion Adult [OM.PC] Routine Oth 03/23/18 19:32 Ordered EKG 12 Lead [EK] Routine Ther 03/23/18 19:27 Ordered Medication Orders Sodium Chloride (Normal Saline) 1,000 mls @ 500 mls/hr IV ASDIRECTED [facility]DO Last Admin: 03/23/18 21:55 Dose: 500 mls/hr Sodium Chloride (Normal Saline) 100 mls @ 3 mls/sec IV ASDIRECTED [facility] Last Admin: 03/23/18 21:42 Dose: 3 mls/sec Admin: 03/23/18 21:41 Dose: 3 mls/sec Iopamidol (Isovue-300 (61%)) 100 ml IV . DIRECTED [facility] Last Admin: 03/23/18 21:41 Dose: 100 ml Sodium Chloride (Saline Flush) 10 ml FLUSH ASDIRECTED PRN PRN Reason: Keep Vein Open Last Admin: 03/23/18 19:52 Dose: 10 ml Labs: Laboratory Tests 03/23/18 03/23/18 03/23/18 Range/Units 19:44 19:44 19:48 WBC 7.9 (4.5-11.0) K/uL RBC 4.66 (4.30-5.90) M/uL Hgb 14.0 (12.0-15.0) g/dL Hct 42.6 (40.0-54.0) % MCV 91 (80-98) fL MCH 30 (27-31) pg MCHC 33 (32-36) % Plt Count 249 (150-400) K/uL Sodium 138 L (140-148) mmol/L Potassium 4.0 (3.6-5.2) mmol/L Chloride 104 (100-108) mmol/L Carbon Dioxide 24 (21-32) mmol/L Anion Gap 14.0 (5.0-14.0) mmol/L BUN 28 H (7-18) mg/dL Creatinine 1.3 (0.8-1.3) mg/dL Est Cr Clr Drug Dosing 44.58 mL/min Estimated GFR (MDRD) 53 L (>60) Glucose 97 (74-106) mg/dL Calcium 9.3 (8.5-10.1) mg/dL Urine Color Yellow Urine Appearance Clear Urine pH 5.0 (4.5-8.0) Ur Specific Speculator 1.015 (1.008-1.030) Urine Protein Negative (NEGATIVE) mg/dL Urine Glucose (UA) 50 H (NEGATIVE) mg/dL Urine Ketones Negative (NEGATIVE) mg/dL Urine Occult Blood Negative (NEGATIVE) Urine Nitrite Negative (NEGAITVE) Urine Bilirubin Negative (NEGATIVE) Urine Urobilinogen Normal (NORMAL) mg/dL Ur Leukocyte Esterase Negative (NEGATIVE) Meds: Medications Generic Name Dose Route Start Last Admin Trade Name Freq PRN Reason Stop Dose Admin Sodium Chloride 1,000 mls @ 500 mls/hr 03/23/18 21:15 03/23/18 21:55 Normal Saline IV 500 mls/hr ASDIRECTED WALDO Administration Sodium Chloride 100 mls @ 3 mls/sec 03/23/18 21:30 03/23/18 21:42 Normal Saline IV 3 mls/sec ASDIRECTED WALDO Administration Iopamidol 100 ml 03/23/18 21:30 03/23/18 21:41 Isovue-300 (61%) IV 100 ml . DIRECTED [facility] Administration Sodium Chloride 10 ml 03/23/18 19:32 03/23/18 19:52 Saline Flush FLUSH 10 ml ASDIRECTED PRN Administration Keep Vein Open Discontinued Medications Generic Name Dose Route Start Last Admin Trade Name Joy PRN Reason Stop Dose Admin Labetalol HCl 20 mg 03/23/18 20:01 03/23/18 20:48 Normodyne IVPUSH 03/23/18 20:02 20 mg NOW ONE Administration Protocol Lisinopril 10 mg 03/23/18 22:04 03/23/18 22:11 Prinivil PO 03/23/18 22:05 10 mg ONETIME ONE Administration Nitroglycerin 0.4 mg 03/23/18 19:31 03/23/18 19:52 Nitrostat SL 03/23/18 19:32 0.4 mg ONETIME ONE Administration Sodium Chloride 10 ml 03/23/18 21:22 03/23/18 21:43 Saline Flush FLUSH 03/23/18 21:23 10 ml ONETIME ONE Administration Departure - Departure Disposition: Home, Self-Care 01 Clinical Impression: Hypertensive urgency Referrals: PCP,None [Primary Care Provider] - Forms: ED Department Discharge Additional Instructions: Start the lisinopril tomorrow please keep your follow-up appointments with pulmonary follow-up with Dr. Burkett in 2-3 days for reevaluation - My Orders Last 24 Hours: My Active Orders 03/23/18 21:30 Iopamidol [Isovue-300 (61%)] 100 ml IV . DIRECTED Sodium Chloride 0.9% [Normal Saline] 100 ml IV ASDIRECTED - Assessment/Plan Last 24 Hours: My Active Orders 03/23/18 21:30 Iopamidol [Isovue-300 (61%)] 100 ml IV . DIRECTED Sodium Chloride 0.9% [Normal Saline] 100 ml IV ASDIRECTED <OfficerEddie - Last Filed: 03/23/18 23:09> ED HPI GENERAL MEDICAL PROBLEM - History of Present Illness INITIAL COMMENTS - FREE TEXT/NARRATIVE: H&P was developed by nurse practitioner student of which I agree with above ED ROS GENERAL - Review of Systems Review Of Systems: See Below ED EXAM, GENERAL - Physical Exam Exam: See Below Departure - Departure Time of Disposition: 23:08 Condition: Poor - Assessment/Plan Plan: Assessment Acuity = acute Site and laterality = hypertensive urgency , comp came the patient with known history of chronic obstructive pulmonary disease probably centrilobular as well as coronary artery disease and a history of atrial fibrillation/flutter Etiology = probably related to recently stopping Cardizem Manifestations = none Location of injury = Home Lab values = CBC, BMP, urinalysis unremarkable chest x-ray shows a significant mediastinal shift from chest x-ray [address] scan confirms this with chronic fluid atelectasis as well as central lobular emphysema EKG demonstrates atrial flutter 3-1 similar to previous EKGs Plan I did review lab work EKG results with him a blood pressure did come down with labetalol and he was started on lisinopril 10 mg once a day prescription written for lisinopril 10 mg once day he will start tomorrow follow-up with primary care in 2-3 days for reevaluation The majority of this note was developed by the nurse practitioner student I did complete a physical exam as well assessment and plan was developed by myself This note was dictated using [employer] voice recognition software please call with any questions on syntax or grammar.
[2018-03-23] MEDS ORDERED: Nitroglycerin 0.4 MG Tab.SL SL ONE (19:31)
[2018-03-23] MEDS ORDERED: Sodium Chloride 0.9% 10 ML Syringe FLUSH PRN (19:32)
[2018-03-23] MEDS ORDERED: Labetalol 20 MG/4 ML Syringe IVPUSH ONE (20:01)
[2018-03-23] MEDS ORDERED: Sodium Chloride 0.9% 1,000 ML IV SCH (21:15)
[2018-03-23] MEDS ORDERED: Sodium Chloride 0.9% 10 ML Syringe FLUSH ONE (21:22)
[2018-03-23] MEDS ORDERED: Iopamidol 612 MG/ML 100 ML Bottle IV SCH (21:30)
[2018-03-23] MEDS: Sodium Chloride 0.9% 100 ML IV SCH ×2 (21:41→21:42)
[2018-03-23] MEDS ORDERED: Lisinopril 10 MG Tab PO ONE (22:04)
--- NOTE | 2018-03-25 10:08 | CR ---
Chest 2V INDICATION: Shortness of breath COMPARISON: 03/04/2018 FINDINGS: Two views. Heart size normal. Sternotomy. Scattered parenchymal densities in both lungs again noted, with slight increase in the right midlung and at the left base. Scarring left apex uncha nged since 2013. CT chest to follow.
== END 2018-03-23 23:18 | disposition home or self-care (01) ==
LOC: JP.ED 18:27
DX: I16.0 Hypertensive urgency (principal); J44.9 Chronic obstructive pulmonary disease, unspecified; M19.90 Unspecified osteoarthritis, unspecified site; Z79.82 Long term (current) use of aspirin; Z79.899 Other long term (current) drug therapy; Z88.1 Allergy status to other antibiotic agents; Z88.8 Allergy status to other drugs, medicaments and biological substances
CPT/HCPCS: 36415; 71046; 71260; 80048; 81003; 85027; 93005; 96361; 96374; 99283; 99285; A9270; J7030; J7050; Q9967

== ENCOUNTER 2022-02-17 12:24 | Inpatient (IN) | payer MEDICARE, BC ==
[2022-02-17] MEDS ORDERED: Sodium Chloride 0.9% 10 ML Syringe FLUSH PRN ×2 (12:27→19:29)
[2022-02-17] MEDS ORDERED: Atropine 0.1 MG/ML 10 ML Syringe IVPUSH ONE (12:29)
[2022-02-17] MEDS ORDERED: Lactated Ringers 1,000 ML IV SCH (12:30)
[2022-02-17] MEDS ORDERED: Aspirin 81 MG Tab.Chew PO ONE (12:31)
[2022-02-17 13:06] LABS: TROPONIN I HIGH SENSITIVITY 14.2 pg/mL (<=60.3)
[2022-02-17 18:31] LABS: CORONAVIRUS COVID-19 NAA NEGATIVE (NEGATIVE)
[2022-02-17] MEDS ORDERED: Acetaminophen 325 MG Tab PO PRN (19:29)
[2022-02-17] MEDS ORDERED: Albuterol 8 GM Inhaler INH PRN (19:29)
[2022-02-17] MEDS ORDERED: CARBIDOPA PO SCH (19:29)
[2022-02-17] MEDS ORDERED: Albuterol 0.083% 2.5 MG/3 ML Neb Soln NEB PRN (19:29)
[2022-02-17] MEDS ORDERED: Ondansetron 4 MG/2 ML SDV IV PRN (19:29)
[2022-02-17] MEDS ORDERED: LEVODOPA PO SCH (19:29)
[2022-02-17] MEDS ORDERED: Nitroglycerin 0.4 MG Tab.SL SL PRN (19:29)
[2022-02-17] MEDS: Carbidopa/Levodopa 25-100 MG Tab PO SCH (19:55)
[2022-02-17] MEDS ORDERED: Tamsulosin 0.4 MG Cap.ER PO SCH (21:00)
[2022-02-17] MEDS ORDERED: rOPINIRole 0.5 MG Tab PO SCH (21:00)
[2022-02-17] MEDS: Metoprolol Tartrate 50 MG Tab PO SCH (21:15)
[2022-02-17] MEDS: Apixaban 5 MG Tab PO SCH (21:16)
[2022-02-17] MEDS: Mometasone Furoate HFA 200 mcg/Puff 13 GM Inhaler INH SCH (22:04)
[2022-02-17] MEDS ORDERED: Carbidopa/Levodopa 50-200 MG Tab.ER PO SCH ×2 (23:00)
[2022-02-18 05:12] LABS: TROPONIN I HIGH SENSITIVITY 559.2 pg/mL (<=60.3)
[2022-02-18] MEDS: Carbidopa/Levodopa 25-100 MG Tab PO SCH (07:25)
[2022-02-18] MEDS: Apixaban 5 MG Tab PO SCH (08:19)
[2022-02-18] MEDS: Metoprolol Tartrate 50 MG Tab PO SCH (08:20)
[2022-02-18] MEDS: Mometasone Furoate HFA 200 mcg/Puff 13 GM Inhaler INH SCH (08:30)
[2022-02-18] MEDS ORDERED: Losartan 25 MG Tab PO SCH (09:00)
[2022-02-18] MEDS ORDERED: Diltiazem 120 MG Cap.CD PO SCH (09:00)
[2022-02-18] MEDS ORDERED: STIOLTO RESPIMAT INH SCH (09:00)
[2022-02-18] MEDS ORDERED: OMEPRAZOLE 20 MG PO SCH (09:00)
[2022-02-18] MEDS ORDERED: Rosuvastatin 10 MG Tab PO SCH (09:00)
[2022-02-18] MEDS ORDERED: Aspirin 81 MG Tab.EC PO SCH (09:00)
[2022-02-18] MEDS ORDERED: Tiotropium BR/Olodaterol HCL 4 GM Inhalation Spray 2.5mcg/1 dose; 10 doses INH SCH (09:00)
[2022-02-18] MEDS ORDERED: Digoxin 125 MCG Tab PO SCH (13:00)
[2022-02-18] MEDS ORDERED: Fluticasone NASAL Spray 16 GM Bottle NAS SCH (17:00)
== END 2022-02-18 10:07 | DRG 281 ==
LOC: JP.ED 12:24 → JP.ICU 17:34
PROVIDERS: ADMIT Hospitalist; ATTEND Hospitalist
DX: I21.4 Non-ST elevation (NSTEMI) myocardial infarction (principal); J44.1 Chronic obstructive pulmonary disease with (acute) exacerbation; H54.7 Unspecified visual loss; H91.90 Unspecified hearing loss, unspecified ear; I48.91 Unspecified atrial fibrillation; Z20.822 Contact with and (suspected) exposure to COVID-19; J44.9 Chronic obstructive pulmonary disease, unspecified; I25.10 Atherosclerotic heart disease of native coronary artery without angina pectoris; K44.9 Diaphragmatic hernia without obstruction or gangrene; K21.9 Gastro-esophageal reflux disease without esophagitis; Z85.46 Personal history of malignant neoplasm of prostate; I77.1 Stricture of artery; I10 Essential (primary) hypertension; M19.90 Unspecified osteoarthritis, unspecified site; Z79.01 Long term (current) use of anticoagulants; Z95.5 Presence of coronary angioplasty implant and graft; Z95.1 Presence of aortocoronary bypass graft; Z88.1 Allergy status to other antibiotic agents; Z88.8 Allergy status to other drugs, medicaments and biological substances; Z79.82 Long term (current) use of aspirin; Z79.899 Other long term (current) drug therapy
CPT/HCPCS: 0241U; 36415; 71045; 80048; 80053; 84484; 85025; 85027; 85610; 93005; 94640; 93010; 96374; 99284; 99285-25; A9270-GY; J0461; J3490; J7120

== ENCOUNTER 2022-07-11 23:34 | Inpatient (IN) | payer MEDICARE, BC ==
[2022-07-11] MEDS ORDERED: Furosemide 40 MG/4 ML VIAL IVPUSH ONE (23:38)
[2022-07-12] MEDS ORDERED: Albuterol 0.083% 2.5 MG/3 ML Neb Soln NEB ONE (00:14)
[2022-07-12 00:27] LABS: ESTIMATED GFR 60 mL/min (>60)
[2022-07-12] MEDS ORDERED: Acetaminophen 325 MG Tab PO ONE (01:01)
[2022-07-12 01:08] LABS: CORONAVIRUS COVID-19 NAA NEGATIVE (NEGATIVE)
[2022-07-12] MEDS ORDERED: Sodium Chloride 0.9% 10 ML Syringe FLUSH ONE (01:13)
[2022-07-12] MEDS ORDERED: Sodium Chloride 0.9% 75 ML IV SCH (01:15)
[2022-07-12] MEDS ORDERED: Iopamidol 755 Mg/ML 100 ML Bottle IV SCH (01:15)
[2022-07-12] MEDS: Morphine 2 MG/ML SYRINGE IVPUSH PRN ×2 (01:56→04:27)
[2022-07-12] MEDS ORDERED: Levofloxacin/Dextrose 5%-Water 750 MG in Premix Bag 1 BAG IV SCH (02:00)
[2022-07-12] MEDS ORDERED: Ondansetron 4 MG Tab.DIS PO PRN (03:20)
[2022-07-12] MEDS ORDERED: Magnesium Hydroxide 400 MG/5 ML Susp 30 ML Cup PO PRN (03:20)
[2022-07-12] MEDS ORDERED: Albuterol 0.083% 2.5 MG/3 ML Neb Soln NEB PRN (03:20)
[2022-07-12] MEDS: oxyCODONE 5 MG Tab PO PRN ×2 (05:00→20:50)
[2022-07-12] MEDS ORDERED: Albuterol/Ipratropium 3.0-0.5 MG/3 ML Neb Soln NEB SCH (06:00)
[2022-07-12 06:13] LABS: TROPONIN I HIGH SENSITIVITY 12.6 pg/mL (<=60.3)
[2022-07-12] MEDS ORDERED: Carbidopa/Levodopa 25-100 MG Tab PO SCH (08:00)
[2022-07-12] MEDS: Diltiazem 120 MG Cap.CD PO SCH (08:53)
[2022-07-12] MEDS: Mometasone Furoate HFA 200 mcg/Puff 13 GM Inhaler INH SCH ×2 (08:53→20:50)
[2022-07-12] MEDS: Tiotropium BR/Olodaterol HCL 4 GM Inhalation Spray 2.5mcg/1 dose; 10 doses INH SCH (08:53)
[2022-07-12] MEDS: Pantoprazole 40 MG Tab.CR PO SCH (08:54)
[2022-07-12] MEDS: Metoprolol Tartrate 25 MG Tab PO SCH ×2 (08:54→20:50)
[2022-07-12] MEDS: Apixaban 5 MG Tab PO SCH ×2 (08:54→20:50)
[2022-07-12] MEDS: Lactobacillus Rhamnosus GG (Probiotic) Cap PO SCH ×2 (08:54→20:50)
[2022-07-12] MEDS ORDERED: Multivitamins with Iron/Calcium/Folic Acid/Minerals Tab PO SCH (09:00)
[2022-07-12] MEDS ORDERED: Rosuvastatin 5 MG Tab PO SCH ×2 (09:00→17:00)
[2022-07-12] MEDS ORDERED: Aspirin 81 MG Tab.EC PO SCH ×2 (09:00→17:00)
[2022-07-12] MEDS ORDERED: Melatonin 3 MG Tab PO PRN (10:18)
[2022-07-12] MEDS: Carbidopa/Levodopa 25-100 MG Tab PO SCH ×3 (10:50→18:22)
[2022-07-12] MEDS: Albuterol/Ipratropium 3.0-0.5 MG/3 ML Neb Soln NEB SCH ×3 (11:08→20:51)
[2022-07-12] MEDS: Digoxin 125 MCG Tab PO SCH (13:20)
[2022-07-12] MEDS: ALPHA LIPOIC ACID 600 MG PO SCH (16:05)
[2022-07-12] MEDS ORDERED: Benzocaine/Cetylpyridinium/Menthol Lozenge MUCMEM PRN (18:02)
[2022-07-12] MEDS: rOPINIRole 0.5 MG Tab PO SCH (20:50)
[2022-07-12] MEDS: Tamsulosin 0.4 MG Cap.ER PO SCH (20:51)
[2022-07-12] MEDS ORDERED: Melatonin 3 MG Tab PO SCH (21:00)
[2022-07-12] MEDS: Ondansetron 4 MG/2 ML SDV IV PRN (21:22)
[2022-07-12] MEDS: Carbidopa/Levodopa 50-200 MG Tab.ER PO SCH (22:22)
[2022-07-13] MEDS: oxyCODONE 5 MG Tab PO PRN (03:07)
[2022-07-13] MEDS: Mometasone Furoate HFA 200 mcg/Puff 13 GM Inhaler INH SCH ×2 (06:59→20:24)
[2022-07-13] MEDS: Albuterol/Ipratropium 3.0-0.5 MG/3 ML Neb Soln NEB SCH ×4 (06:59→21:00)
[2022-07-13] MEDS: Tiotropium BR/Olodaterol HCL 4 GM Inhalation Spray 2.5mcg/1 dose; 10 doses INH SCH (07:00)
[2022-07-13] MEDS: Pantoprazole 40 MG Tab.CR PO SCH (07:40)
[2022-07-13] MEDS: Carbidopa/Levodopa 25-100 MG Tab PO SCH ×4 (07:42→18:32)
[2022-07-13] MEDS: Lactobacillus Rhamnosus GG (Probiotic) Cap PO SCH ×2 (08:48→20:25)
[2022-07-13] MEDS: Apixaban 5 MG Tab PO SCH ×2 (08:48→20:26)
[2022-07-13] MEDS: Diltiazem 120 MG Cap.CD PO SCH (08:48)
[2022-07-13] MEDS: Metoprolol Tartrate 25 MG Tab PO SCH ×2 (08:49→20:27)
[2022-07-13] MEDS: Acetaminophen 325 MG Tab PO PRN ×3 (08:54→22:54)
[2022-07-13] MEDS: PRESERVISION AREDS PO SCH (08:59)
[2022-07-13] MEDS: Digoxin 125 MCG Tab PO SCH (13:18)
[2022-07-13] MEDS: Aspirin 81 MG Tab.EC PO SCH (17:28)
[2022-07-13] MEDS: Rosuvastatin 5 MG Tab PO SCH (17:28)
[2022-07-13] MEDS: ALPHA LIPOIC ACID 600 MG PO SCH (18:05)
[2022-07-13] MEDS: Tamsulosin 0.4 MG Cap.ER PO SCH (20:27)
[2022-07-13] MEDS: rOPINIRole 0.5 MG Tab PO SCH (20:28)
[2022-07-13] MEDS: Levofloxacin/Dextrose 5%-Water 750 MG in Premix Bag 1 BAG IV SCH (20:29)
[2022-07-13] MEDS: Carbidopa/Levodopa 50-200 MG Tab.ER PO SCH (22:53)
[2022-07-14] MEDS: Mometasone Furoate HFA 200 mcg/Puff 13 GM Inhaler INH SCH ×2 (07:22→21:33)
[2022-07-14] MEDS: Albuterol/Ipratropium 3.0-0.5 MG/3 ML Neb Soln NEB SCH ×4 (07:22→21:33)
[2022-07-14] MEDS: Carbidopa/Levodopa 25-100 MG Tab PO SCH ×4 (07:58→19:48)
[2022-07-14] MEDS: Pantoprazole 40 MG Tab.CR PO SCH (08:04)
[2022-07-14] MEDS: Diltiazem 120 MG Cap.CD PO SCH (08:10)
[2022-07-14] MEDS: Lactobacillus Rhamnosus GG (Probiotic) Cap PO SCH ×2 (08:11→21:34)
[2022-07-14] MEDS: Metoprolol Tartrate 25 MG Tab PO SCH ×2 (08:12→21:34)
[2022-07-14] MEDS: Apixaban 5 MG Tab PO SCH ×2 (08:13→21:34)
[2022-07-14] MEDS: PRESERVISION AREDS PO SCH (08:16)
[2022-07-14] MEDS: Tiotropium BR/Olodaterol HCL 4 GM Inhalation Spray 2.5mcg/1 dose; 10 doses INH SCH (08:53)
[2022-07-14] MEDS: Digoxin 125 MCG Tab PO SCH (12:37)
[2022-07-14] MEDS: Rosuvastatin 5 MG Tab PO SCH (16:12)
[2022-07-14] MEDS: Aspirin 81 MG Tab.EC PO SCH (16:12)
[2022-07-14] MEDS: ALPHA LIPOIC ACID 600 MG PO SCH (16:13)
[2022-07-14] MEDS: Tamsulosin 0.4 MG Cap.ER PO SCH (21:34)
[2022-07-14] MEDS: rOPINIRole 0.5 MG Tab PO SCH (21:34)
[2022-07-14] MEDS: Carbidopa/Levodopa 50-200 MG Tab.ER PO SCH (22:08)
[2022-07-15] MEDS: Albuterol/Ipratropium 3.0-0.5 MG/3 ML Neb Soln NEB SCH ×4 (07:24→21:59)
[2022-07-15] MEDS: Mometasone Furoate HFA 200 mcg/Puff 13 GM Inhaler INH SCH ×2 (07:27→21:57)
[2022-07-15] MEDS: Tiotropium BR/Olodaterol HCL 4 GM Inhalation Spray 2.5mcg/1 dose; 10 doses INH SCH (07:29)
[2022-07-15] MEDS: PRESERVISION AREDS PO SCH (08:58)
[2022-07-15] MEDS: Pantoprazole 40 MG Tab.CR PO SCH (08:59)
[2022-07-15] MEDS: Diltiazem 120 MG Cap.CD PO SCH (08:59)
[2022-07-15] MEDS: Carbidopa/Levodopa 25-100 MG Tab PO SCH ×4 (08:59→19:43)
[2022-07-15] MEDS: Lactobacillus Rhamnosus GG (Probiotic) Cap PO SCH ×2 (09:00→21:59)
[2022-07-15] MEDS: Metoprolol Tartrate 25 MG Tab PO SCH ×2 (09:00→21:59)
[2022-07-15] MEDS: Apixaban 5 MG Tab PO SCH ×2 (09:00→21:59)
[2022-07-15] MEDS: Digoxin 125 MCG Tab PO SCH (12:35)
[2022-07-15] MEDS: ALPHA LIPOIC ACID 600 MG PO SCH (16:05)
[2022-07-15] MEDS: Rosuvastatin 5 MG Tab PO SCH (16:05)
[2022-07-15] MEDS: Aspirin 81 MG Tab.EC PO SCH (16:06)
[2022-07-15] MEDS: Acetaminophen 325 MG Tab PO PRN (19:51)
[2022-07-15] MEDS: Levofloxacin/Dextrose 5%-Water 750 MG in Premix Bag 1 BAG IV SCH (21:57)
[2022-07-15] MEDS: rOPINIRole 0.5 MG Tab PO SCH (21:59)
[2022-07-15] MEDS: Carbidopa/Levodopa 50-200 MG Tab.ER PO SCH (21:59)
[2022-07-15] MEDS: Tamsulosin 0.4 MG Cap.ER PO SCH (21:59)
[2022-07-16] MEDS: Carbidopa/Levodopa 25-100 MG Tab PO SCH ×4 (06:43→19:13)
[2022-07-16] MEDS: Acetaminophen 325 MG Tab PO PRN ×3 (06:43→23:28)
[2022-07-16] MEDS: Albuterol/Ipratropium 3.0-0.5 MG/3 ML Neb Soln NEB SCH ×4 (07:16→21:48)
[2022-07-16] MEDS: Tiotropium BR/Olodaterol HCL 4 GM Inhalation Spray 2.5mcg/1 dose; 10 doses INH SCH (07:20)
[2022-07-16] MEDS: Mometasone Furoate HFA 200 mcg/Puff 13 GM Inhaler INH SCH ×2 (07:20→21:48)
[2022-07-16] MEDS: Pantoprazole 40 MG Tab.CR PO SCH (08:02)
[2022-07-16] MEDS: Metoprolol Tartrate 25 MG Tab PO SCH ×2 (08:32→21:11)
[2022-07-16] MEDS: Lactobacillus Rhamnosus GG (Probiotic) Cap PO SCH ×2 (08:33→21:11)
[2022-07-16] MEDS: Diltiazem 120 MG Cap.CD PO SCH (08:33)
[2022-07-16] MEDS: Apixaban 5 MG Tab PO SCH ×2 (08:33→21:10)
[2022-07-16] MEDS: PRESERVISION AREDS PO SCH (09:05)
[2022-07-16] MEDS: Digoxin 125 MCG Tab PO SCH (12:55)
[2022-07-16] MEDS: ALPHA LIPOIC ACID 600 MG PO SCH (16:35)
[2022-07-16] MEDS: Rosuvastatin 5 MG Tab PO SCH (16:36)
[2022-07-16] MEDS: Aspirin 81 MG Tab.EC PO SCH (16:37)
[2022-07-16] MEDS: Tamsulosin 0.4 MG Cap.ER PO SCH (21:10)
[2022-07-16] MEDS: rOPINIRole 0.5 MG Tab PO SCH (21:10)
[2022-07-16] MEDS: Carbidopa/Levodopa 50-200 MG Tab.ER PO SCH (23:01)
[2022-07-17] MEDS: Albuterol/Ipratropium 3.0-0.5 MG/3 ML Neb Soln NEB SCH ×4 (07:06→21:01)
[2022-07-17] MEDS: Mometasone Furoate HFA 200 mcg/Puff 13 GM Inhaler INH SCH ×2 (07:06→21:01)
[2022-07-17] MEDS: Tiotropium BR/Olodaterol HCL 4 GM Inhalation Spray 2.5mcg/1 dose; 10 doses INH SCH (07:06)
[2022-07-17] MEDS: Pantoprazole 40 MG Tab.CR PO SCH (07:46)
[2022-07-17] MEDS: Carbidopa/Levodopa 25-100 MG Tab PO SCH ×4 (07:46→18:37)
[2022-07-17] MEDS: Metoprolol Tartrate 25 MG Tab PO SCH ×2 (08:10→21:02)
[2022-07-17] MEDS: Apixaban 5 MG Tab PO SCH ×2 (08:11→21:01)
[2022-07-17] MEDS: Lactobacillus Rhamnosus GG (Probiotic) Cap PO SCH ×2 (08:11→21:01)
[2022-07-17] MEDS: Diltiazem 120 MG Cap.CD PO SCH (08:11)
[2022-07-17] MEDS: PRESERVISION AREDS PO SCH (08:12)
[2022-07-17] MEDS: Acetaminophen 325 MG Tab PO PRN ×2 (09:21→19:21)
[2022-07-17] MEDS ORDERED: Sodium Chloride 0.65% Nasal Spray 45 ML Bottle NAS PRN (13:57)
[2022-07-17] MEDS: Digoxin 125 MCG Tab PO SCH (15:38)
[2022-07-17] MEDS: ALPHA LIPOIC ACID 600 MG PO SCH (17:28)
[2022-07-17] MEDS: Rosuvastatin 5 MG Tab PO SCH (17:29)
[2022-07-17] MEDS: Aspirin 81 MG Tab.EC PO SCH (17:29)
[2022-07-17] MEDS: Levofloxacin/Dextrose 5%-Water 750 MG in Premix Bag 1 BAG IV SCH (21:01)
[2022-07-17] MEDS: rOPINIRole 0.5 MG Tab PO SCH (21:01)
[2022-07-17] MEDS: Tamsulosin 0.4 MG Cap.ER PO SCH (21:01)
[2022-07-17] MEDS: Carbidopa/Levodopa 50-200 MG Tab.ER PO SCH (22:45)
[2022-07-18] MEDS: Acetaminophen 325 MG Tab PO PRN ×3 (02:23→13:50)
[2022-07-18] MEDS: Albuterol/Ipratropium 3.0-0.5 MG/3 ML Neb Soln NEB SCH ×4 (07:04→20:17)
[2022-07-18] MEDS: Mometasone Furoate HFA 200 mcg/Puff 13 GM Inhaler INH SCH ×2 (07:04→20:17)
[2022-07-18] MEDS: Tiotropium BR/Olodaterol HCL 4 GM Inhalation Spray 2.5mcg/1 dose; 10 doses INH SCH (07:04)
[2022-07-18] MEDS: Pantoprazole 40 MG Tab.CR PO SCH (07:32)
[2022-07-18] MEDS: Carbidopa/Levodopa 25-100 MG Tab PO SCH ×4 (07:32→18:25)
[2022-07-18] MEDS: Apixaban 5 MG Tab PO SCH ×2 (09:01→20:18)
[2022-07-18] MEDS: Metoprolol Tartrate 25 MG Tab PO SCH ×2 (09:02→20:18)
[2022-07-18] MEDS: Lactobacillus Rhamnosus GG (Probiotic) Cap PO SCH ×2 (09:04→20:18)
[2022-07-18] MEDS: Diltiazem 120 MG Cap.CD PO SCH (09:06)
[2022-07-18] MEDS: PRESERVISION AREDS PO SCH (09:07)
[2022-07-18] MEDS: Digoxin 125 MCG Tab PO SCH (13:34)
[2022-07-18] MEDS: ALPHA LIPOIC ACID 600 MG PO SCH (16:17)
[2022-07-18] MEDS: Rosuvastatin 5 MG Tab PO SCH (16:19)
[2022-07-18] MEDS: Aspirin 81 MG Tab.EC PO SCH (16:20)
[2022-07-18] MEDS: Tamsulosin 0.4 MG Cap.ER PO SCH (20:18)
[2022-07-18] MEDS: rOPINIRole 0.5 MG Tab PO SCH (20:19)
[2022-07-18] MEDS: Carbidopa/Levodopa 50-200 MG Tab.ER PO SCH (22:07)
[2022-07-19] MEDS: Acetaminophen 325 MG Tab PO PRN (00:21)
[2022-07-19] MEDS: Mometasone Furoate HFA 200 mcg/Puff 13 GM Inhaler INH SCH ×2 (07:28→20:01)
[2022-07-19] MEDS: Albuterol/Ipratropium 3.0-0.5 MG/3 ML Neb Soln NEB SCH ×4 (07:28→20:00)
[2022-07-19] MEDS: Tiotropium BR/Olodaterol HCL 4 GM Inhalation Spray 2.5mcg/1 dose; 10 doses INH SCH (07:28)
[2022-07-19] MEDS: Pantoprazole 40 MG Tab.CR PO SCH (07:57)
[2022-07-19] MEDS: Carbidopa/Levodopa 25-100 MG Tab PO SCH ×4 (07:57→19:52)
[2022-07-19] MEDS: Diltiazem 120 MG Cap.CD PO SCH (08:31)
[2022-07-19] MEDS: Metoprolol Tartrate 25 MG Tab PO SCH ×2 (08:31→20:00)
[2022-07-19] MEDS: Lactobacillus Rhamnosus GG (Probiotic) Cap PO SCH ×2 (08:31→20:00)
[2022-07-19] MEDS: Apixaban 5 MG Tab PO SCH ×2 (08:31→20:00)
[2022-07-19] MEDS: PRESERVISION AREDS PO SCH (08:32)
[2022-07-19] MEDS: Ondansetron 4 MG/2 ML SDV IV PRN (09:17)
[2022-07-19] MEDS: Digoxin 125 MCG Tab PO SCH (13:11)
[2022-07-19] MEDS: ALPHA LIPOIC ACID 600 MG PO SCH (17:02)
[2022-07-19] MEDS: Rosuvastatin 5 MG Tab PO SCH (17:03)
[2022-07-19] MEDS: Aspirin 81 MG Tab.EC PO SCH (17:03)
[2022-07-19] MEDS: Tamsulosin 0.4 MG Cap.ER PO SCH (20:00)
[2022-07-19] MEDS: rOPINIRole 0.5 MG Tab PO SCH (20:00)
[2022-07-19] MEDS: Levofloxacin/Dextrose 5%-Water 750 MG in Premix Bag 1 BAG IV SCH (20:01)
[2022-07-19] MEDS: Carbidopa/Levodopa 50-200 MG Tab.ER PO SCH (22:50)
[2022-07-20] MEDS: Albuterol/Ipratropium 3.0-0.5 MG/3 ML Neb Soln NEB SCH ×4 (07:30→20:20)
[2022-07-20] MEDS: Tiotropium BR/Olodaterol HCL 4 GM Inhalation Spray 2.5mcg/1 dose; 10 doses INH SCH (07:30)
[2022-07-20] MEDS: Mometasone Furoate HFA 200 mcg/Puff 13 GM Inhaler INH SCH ×2 (07:30→20:20)
[2022-07-20] MEDS: Pantoprazole 40 MG Tab.CR PO SCH (07:37)
[2022-07-20] MEDS: Carbidopa/Levodopa 25-100 MG Tab PO SCH ×4 (07:38→18:12)
[2022-07-20] MEDS: Diltiazem 120 MG Cap.CD PO SCH (09:27)
[2022-07-20] MEDS: Lactobacillus Rhamnosus GG (Probiotic) Cap PO SCH ×2 (09:28→20:20)
[2022-07-20] MEDS: Apixaban 5 MG Tab PO SCH ×2 (09:29→20:20)
[2022-07-20] MEDS: Metoprolol Tartrate 25 MG Tab PO SCH ×2 (09:30→20:21)
[2022-07-20] MEDS: PRESERVISION AREDS PO SCH (09:33)
[2022-07-20] MEDS: Digoxin 125 MCG Tab PO SCH (13:25)
[2022-07-20] MEDS: ALPHA LIPOIC ACID 600 MG PO SCH (16:22)
[2022-07-20] MEDS: Rosuvastatin 5 MG Tab PO SCH (16:23)
[2022-07-20] MEDS: Aspirin 81 MG Tab.EC PO SCH (16:24)
[2022-07-20] MEDS: Tamsulosin 0.4 MG Cap.ER PO SCH (20:20)
[2022-07-20] MEDS: rOPINIRole 0.5 MG Tab PO SCH (20:23)
[2022-07-20] MEDS: Carbidopa/Levodopa 50-200 MG Tab.ER PO SCH (22:20)
[2022-07-21] MEDS: Mometasone Furoate HFA 200 mcg/Puff 13 GM Inhaler INH SCH ×2 (07:07→20:48)
[2022-07-21] MEDS: Albuterol/Ipratropium 3.0-0.5 MG/3 ML Neb Soln NEB SCH ×4 (07:08→20:44)
[2022-07-21] MEDS: Carbidopa/Levodopa 25-100 MG Tab PO SCH ×4 (07:52→19:08)
[2022-07-21] MEDS: Pantoprazole 40 MG Tab.CR PO SCH (07:53)
[2022-07-21] MEDS: Apixaban 5 MG Tab PO SCH ×2 (08:23→20:47)
[2022-07-21] MEDS: Metoprolol Tartrate 25 MG Tab PO SCH ×2 (08:23→20:47)
[2022-07-21] MEDS: Diltiazem 120 MG Cap.CD PO SCH (08:23)
[2022-07-21] MEDS: Lactobacillus Rhamnosus GG (Probiotic) Cap PO SCH ×2 (08:23→20:47)
[2022-07-21] MEDS: PRESERVISION AREDS PO SCH (08:24)
[2022-07-21] MEDS: Tiotropium BR/Olodaterol HCL 4 GM Inhalation Spray 2.5mcg/1 dose; 10 doses INH SCH (10:59)
[2022-07-21] MEDS: Digoxin 125 MCG Tab PO SCH (12:57)
[2022-07-21] MEDS: Rosuvastatin 5 MG Tab PO SCH (16:07)
[2022-07-21] MEDS: Aspirin 81 MG Tab.EC PO SCH (16:07)
[2022-07-21] MEDS: ALPHA LIPOIC ACID 600 MG PO SCH (16:07)
[2022-07-21] MEDS: Tamsulosin 0.4 MG Cap.ER PO SCH (20:47)
[2022-07-21] MEDS: rOPINIRole 0.5 MG Tab PO SCH (20:50)
[2022-07-21] MEDS: Carbidopa/Levodopa 50-200 MG Tab.ER PO SCH (23:05)
[2022-07-22] MEDS: Carbidopa/Levodopa 25-100 MG Tab PO SCH ×4 (07:06→18:28)
[2022-07-22] MEDS: Pantoprazole 40 MG Tab.CR PO SCH (07:07)
[2022-07-22] MEDS: Mometasone Furoate HFA 200 mcg/Puff 13 GM Inhaler INH SCH ×2 (07:38→20:39)
[2022-07-22] MEDS: Albuterol/Ipratropium 3.0-0.5 MG/3 ML Neb Soln NEB SCH ×4 (07:38→20:48)
[2022-07-22] MEDS: Tiotropium BR/Olodaterol HCL 4 GM Inhalation Spray 2.5mcg/1 dose; 10 doses INH SCH (09:04)
[2022-07-22] MEDS: Lactobacillus Rhamnosus GG (Probiotic) Cap PO SCH ×2 (10:00→20:39)
[2022-07-22] MEDS: Metoprolol Tartrate 25 MG Tab PO SCH ×2 (10:02→20:40)
[2022-07-22] MEDS: Apixaban 5 MG Tab PO SCH ×2 (10:02→20:40)
[2022-07-22] MEDS: Diltiazem 120 MG Cap.CD PO SCH (10:03)
[2022-07-22] MEDS: PRESERVISION AREDS PO SCH (10:04)
[2022-07-22] MEDS: Digoxin 125 MCG Tab PO SCH (12:44)
[2022-07-22] MEDS ORDERED: Sodium Phosphate,Monobasic/Sodium Phosphate,Dibasic Enema 133 ML Bottle RECTAL PRN (14:58)
[2022-07-22] MEDS ORDERED: Bisacodyl 10 MG Supp RECTAL ONE (15:15)
[2022-07-22] MEDS: ALPHA LIPOIC ACID 600 MG PO SCH (16:35)
[2022-07-22] MEDS: Aspirin 81 MG Tab.EC PO SCH (17:44)
[2022-07-22] MEDS: Rosuvastatin 5 MG Tab PO SCH (17:44)
[2022-07-22] MEDS: rOPINIRole 0.5 MG Tab PO SCH (20:39)
[2022-07-22] MEDS: Tamsulosin 0.4 MG Cap.ER PO SCH (20:41)
[2022-07-22] MEDS: Carbidopa/Levodopa 50-200 MG Tab.ER PO SCH (22:34)
[2022-07-23] MEDS: Acetaminophen 325 MG Tab PO PRN (01:26)
[2022-07-23] MEDS: Carbidopa/Levodopa 25-100 MG Tab PO SCH ×4 (07:20→20:35)
[2022-07-23] MEDS: Pantoprazole 40 MG Tab.CR PO SCH (07:20)
[2022-07-23] MEDS: Mometasone Furoate HFA 200 mcg/Puff 13 GM Inhaler INH SCH ×2 (07:31→20:33)
[2022-07-23] MEDS: Albuterol/Ipratropium 3.0-0.5 MG/3 ML Neb Soln NEB SCH ×4 (07:31→20:33)
[2022-07-23] MEDS: Apixaban 5 MG Tab PO SCH ×2 (08:31→20:34)
[2022-07-23] MEDS: Metoprolol Tartrate 25 MG Tab PO SCH ×2 (08:31→20:34)
[2022-07-23] MEDS: Diltiazem 120 MG Cap.CD PO SCH (08:32)
[2022-07-23] MEDS: PRESERVISION AREDS PO SCH (08:32)
[2022-07-23] MEDS: Lactobacillus Rhamnosus GG (Probiotic) Cap PO SCH ×2 (08:32→20:34)
[2022-07-23] MEDS: Digoxin 125 MCG Tab PO SCH (13:40)
[2022-07-23] MEDS: Tiotropium BR/Olodaterol HCL 4 GM Inhalation Spray 2.5mcg/1 dose; 10 doses INH SCH (14:45)
[2022-07-23] MEDS: ALPHA LIPOIC ACID 600 MG PO SCH (17:14)
[2022-07-23] MEDS: Aspirin 81 MG Tab.EC PO SCH (17:16)
[2022-07-23] MEDS: Rosuvastatin 5 MG Tab PO SCH (17:16)
[2022-07-23] MEDS: rOPINIRole 0.5 MG Tab PO SCH (20:34)
[2022-07-23] MEDS: Tamsulosin 0.4 MG Cap.ER PO SCH (20:35)
[2022-07-23] MEDS: Carbidopa/Levodopa 50-200 MG Tab.ER PO SCH (22:55)
[2022-07-24] MEDS: Pantoprazole 40 MG Tab.CR PO SCH (07:01)
[2022-07-24] MEDS: Carbidopa/Levodopa 25-100 MG Tab PO SCH (07:02)
[2022-07-24] MEDS: Mometasone Furoate HFA 200 mcg/Puff 13 GM Inhaler INH SCH (07:08)
[2022-07-24] MEDS: Albuterol/Ipratropium 3.0-0.5 MG/3 ML Neb Soln NEB SCH (07:08)
[2022-07-24] MEDS: Tiotropium BR/Olodaterol HCL 4 GM Inhalation Spray 2.5mcg/1 dose; 10 doses INH SCH (07:09)
[2022-07-24] MEDS: Metoprolol Tartrate 25 MG Tab PO SCH (08:31)
[2022-07-24] MEDS: Lactobacillus Rhamnosus GG (Probiotic) Cap PO SCH (08:31)
[2022-07-24] MEDS: Diltiazem 120 MG Cap.CD PO SCH (08:31)
[2022-07-24] MEDS: Apixaban 5 MG Tab PO SCH (08:31)
[2022-07-24] MEDS: PRESERVISION AREDS PO SCH (08:32)
== END 2022-07-24 09:58 | DRG 193 ==
LOC: JP.ED 23:34 → JP.ICU 07-12 02:17 → JP.MS 07-16 11:26
PROVIDERS: ADMIT Internal Medicine; ATTEND Internal Medicine
DX: J18.9 Pneumonia, unspecified organism (principal); J96.01 Acute respiratory failure with hypoxia; J96.90 Respiratory failure, unspecified, unspecified whether with hypoxia or hypercapnia; I48.91 Unspecified atrial fibrillation; R78.81 Bacteremia; M19.90 Unspecified osteoarthritis, unspecified site; I10 Essential (primary) hypertension; I11.0 Hypertensive heart disease with heart failure; I50.9 Heart failure, unspecified; I48.0 Paroxysmal atrial fibrillation; G20 Parkinson's disease; J43.9 Emphysema, unspecified; K59.00 Constipation, unspecified; Z20.822 Contact with and (suspected) exposure to COVID-19; I25.10 Atherosclerotic heart disease of native coronary artery without angina pectoris; Z79.82 Long term (current) use of aspirin; Z79.1 Long term (current) use of non-steroidal anti-inflammatories (NSAID); Z79.899 Other long term (current) drug therapy; Z79.52 Long term (current) use of systemic steroids; Z88.1 Allergy status to other antibiotic agents; Z88.8 Allergy status to other drugs, medicaments and biological substances; Z79.01 Long term (current) use of anticoagulants; Z98.42 Cataract extraction status, left eye; Z98.41 Cataract extraction status, right eye; Z95.1 Presence of aortocoronary bypass graft; Z95.5 Presence of coronary angioplasty implant and graft; Z87.891 Personal history of nicotine dependence
CPT/HCPCS: 0241U; 36415; 36600; 71045; 71275; 80048; 80053; 81001; 82803; 83605; 83880; 84484; 85025; 85027; 85379; 86140; 87040; 87077; 87081; 87880; 93005; 94640; 94667; 94668; 97110; 97140; 97163; 97530; 99222; 99232; 99238; 96365; 96375; 99285-25; A9270-GY; J0713; J1940; J1956; J2270; J2405; J3490; J7620; Q9967

== ENCOUNTER 2022-10-11 10:29 | Emergency (ER) | payer MEDICARE, BC ==
[2022-10-11 11:49] LABS: TROPONIN I HIGH SENSITIVITY 29.6 pg/mL (<=60.3)
[2022-10-11 11:50] LABS: CORONAVIRUS COVID-19 NAA NEGATIVE (NEGATIVE)
[2022-10-11] MEDS ORDERED: Furosemide 40 MG/4 ML VIAL IVPUSH ONE (12:37)
[2022-10-11] MEDS ORDERED: Albuterol 0.083% 2.5 MG/3 ML Neb Soln NEB ONE (12:37)
[2022-10-11] MEDS ORDERED: predniSONE 20 MG Tab PO ONE (12:38)
== END 2022-10-11 17:44 | disposition home or self-care (01) ==
LOC: JP.ED 10:29
DX: J44.1 Chronic obstructive pulmonary disease with (acute) exacerbation (principal); C61 Malignant neoplasm of prostate; J96.01 Acute respiratory failure with hypoxia; I25.10 Atherosclerotic heart disease of native coronary artery without angina pectoris; I11.0 Hypertensive heart disease with heart failure; I50.9 Heart failure, unspecified; D64.9 Anemia, unspecified; I48.91 Unspecified atrial fibrillation; K21.9 Gastro-esophageal reflux disease without esophagitis; Z95.1 Presence of aortocoronary bypass graft; Z88.1 Allergy status to other antibiotic agents; Z88.8 Allergy status to other drugs, medicaments and biological substances; Z79.899 Other long term (current) drug therapy; Z79.82 Long term (current) use of aspirin; Z20.822 Contact with and (suspected) exposure to COVID-19
CPT/HCPCS: 0241U; 36415; 71045; 80048; 81001; 82803; 83735; 83880; 84145; 84484; 85025; 93005; 93010; 94640; 96374; 99285; J1940; J7512